=== PATIENT | female | born 1980 | race African-American/Black ===

== ENCOUNTER 2019-06-01 23:47 | Emergency (ER) | payer OTHER, SELFPAY ==
[2019-06-02] MEDS ORDERED: HYDROcodone/Acetaminophen 7.5/325 mg Tablet ONE (01:06)
[2019-06-02] MEDS ORDERED: Cyclobenzaprine 10 MG TAB ONE (01:58)
--- NOTE | 2019-06-02 06:14 | RAD ---
RADIOGRAPH RIGHT LEG TIBIA-FIBULA 2VIEWS: DATE: 06/02/2019 HISTORY: 38-year-old female with acute right leg pain FINDINGS: There is no evidence of fracture, periostitis, permeative lesion, osteolytic lesion, or osteoblastic lesion involving the tibia or fibula. No radiopaque foreign body, abnormal soft tissue calcification, or subcutaneous emphysema is identified. IMPRESSION: Normal
== END 2019-06-02 02:21 | disposition home or self-care (01) ==
LOC: ERS 23:47
DX: S86.911A Strain of unspecified muscle(s) and tendon(s) at lower leg level, right leg, initial encounter (principal); F17.210 Nicotine dependence, cigarettes, uncomplicated; X50.1XXA Overexertion from prolonged static or awkward postures, initial encounter

== ENCOUNTER 2025-05-23 14:21 | Emergency (ER) | payer OTHER, SELFPAY ==
[2025-05-23] MEDS ORDERED: predniSONE 20 MG TAB ONE ×2 (17:19→17:24)
== END 2025-05-23 17:55 | disposition home or self-care (01) ==
LOC: ERS 14:21
DX: J06.9 Acute upper respiratory infection, unspecified (principal); F17.210 Nicotine dependence, cigarettes, uncomplicated
CPT/HCPCS: 71045; 87428; J7512